=== PATIENT | male | born 2000 | race Caucasian/White ===

== ENCOUNTER → 2022-06-10 | Outpatient (CLI) | payer BC ==
--- NOTE | 2022-06-10 12:07 | US ---
EXAMINATION TYPE: US abdomen complete DATE OF EXAM: 06/10/2022 COMPARISON: NONE CLINICAL HISTORY: 21-year-old male R10.11 RUQ PAIN. TECHNIQUE: Multiple sonographic images of the abdomen are obtained. FINDINGS: EXAM MEASUREMENTS: Liver Length: 16.6 cm Gallbladder Wall: 0.14 cm CBD: 0.24 cm Spleen: 9.8 cm Right Kidney: 9.8 x 3.9 x 5.1 cm Left Kidney: 10.1 x 5.5 x 4.1 cm Pancreas: wnl Liver: 2 areas of focal fat: 1. Near the falciform ligament measuring 1.3 x 1.1 x 1.0cm 2. Near the gallbladder fossa measuring 2.6 x 1.7 x 1.7cm. 3. Otherwise, no worrisome focal lesion. Gallbladder: No abnormal distention, wall thickening, pericholecystic fluid, or shadowing calculi. Evidence for sonographic Rubio's sign: No CBD: wnl Spleen: wnl Right Kidney: wnl Left Kidney: wnl Upper IVC: wnl Abd Aorta: wnl IMPRESSION: A couple incidental areas of benign focal fat within the liver. No gallstones or biliary ductal dilat ation. No evidence for acute cholecystitis.
--- NOTE | 2022-06-10 12:11 | US ---
EXAMINATION TYPE: US abdomen APPY DATE OF EXAM: 06/10/2022 COMPARISON: NONE CLINICAL HISTORY: 21-year-old male R10.11 RIGHT UPPER QUADRANT PAIN. TECHNIQUE: Multiple sonographic images of the right lower quadrant were obtained with graded compress ion. FINDINGS: APPENDIX AP Diameter (normal < 6mm): Unable to visualize Is the appendix seen in its entirety from the proximal cecum to distal end: No Is the appendix compressible: N/A Does the appendix wall appear hypervascular: N/A Is an appendicolith present: N/A Is there inflammatory changes or free fluid present: No CARPENTER REPAIR NOTES: Appendix is not visualized on today's exam. IMPRESSION: Unable to visualize the appendix. Further clinical correlation will be needed for any suspected acute appendicitis.
[2022-06-10 14:21] LABS: ALT 41 U/L (4-49); AST 34 U/L (17-59); African American GFR (CKD) >90 (>60 ml/min/1.73 sqM); Albumin 4.8 g/dL (3.5-5.0); Albumin/Globulin Ratio 1.6; Alkaline Phosphatase 83 U/L (38-126); Anion Gap 11 mmol/L; Blood Urea Nitrogen 11 mg/dL (9-20); C Reactive Protein 1.9 mg/dL (<1.0); Calcium 9.9 mg/dL (8.4-10.2); Carbon Dioxide 28 mmol/L (22-30); Chloride 100 mmol/L (98-107); Glucose 77 mg/dL (74-99); Non-African American GFR(CKD) >90 (>60 ml/min/1.73 sqM); Potassium 3.7 mmol/L (3.5-5.1); Sodium 139 mmol/L (137-145); Total Bilirubin 0.8 mg/dL (0.2-1.3); Total Protein 7.8 g/dL (6.3-8.2)
[2022-06-10 14:30] LABS: Basophils % (A) 1 %; Eosinophils % (A) 0 %; HCT 42.3 % (39.0-53.0); HGB 14.5 gm/dL (13.0-17.5); Lymphocytes # (A) 0.9 k/uL (1.0-4.8); Lymphocytes % (A) 26 %; MCH 29.9 pg (25.0-35.0); MCHC 34.3 g/dL (31.0-37.0); MCV 87.2 fL (80.0-100.0); Mean Platelet Volume 6.8; Monocytes # (A) 0.6 k/uL (0-1.0); Monocytes % (A) 18 %; Neutrophils # (A) 1.7 k/uL (1.3-7.7); Neutrophils % (A) 52 %; Platelet Count 256 k/uL (150-450); RBC 4.86 m/uL (4.30-5.90); RDW 12.6 % (11.5-15.5); WBC 3.3 k/uL (3.8-10.6)
== END | disposition home or self-care (01) ==
LOC: RADUSWWP 10:41
PROVIDERS: ATTEND Family Medicine
DX: K76.89 Other specified diseases of liver (principal)
CPT/HCPCS: 76700; 76705; 80053; 85025; 86140